=== PATIENT | male | born 1955 | race African-American/Black ===

== ENCOUNTER 2016-03-18 13:31 | Emergency (ER) | payer OTHER, SELFPAY ==
[2016-03-18 13:49] VITALS: TEMP 98.1; BMI 23.6
--- NOTE | 2016-03-18 13:59 | EDPRACDOC ---
- General Information Chief Complaint: Back Pain Stated Complaint: BACK PAIN - MED REFILL Time Seen by Provider: 03/18/16 13:52 Information Source: Patient, [employer] Mode Of Arrival: Ambulance Home Medications: Home Medications Cephalexin Monohydrate [Keflex] 500 mg PO Q6H #20 cap 04/12/15 Hydrocodone Bit/Acetaminophen [Hydrocodon-Acetaminophen 5-325] 1 tab PO Q6 PRN # 15 tab 04/12/15 Ciprofloxacin HCl [Cipro] 500 mg PO BID #14 tab 03/18/16 Cyclobenzaprine HCl [Flexeril] 10 mg PO TID PRN #15 tablet 03/18/16 Hydrocodone Bit/Acetaminophen [Lortab 5/325] 1 tab PO Q4-6H PRN #15 tab Prednisone [Deltasone, Orasone] 20 mg PO DAILY #20 tab 03/18/16 Allergies/Adverse Reactions: Allergies Allergy/AdvReac Type Severity Reaction Status Date / Time No Known Allergies Allergy Verified 04/12/15 11:27 - History of Present Illness Onset: 03/15/16 HPI: Pt states he stood up on Thursday and took 4 steps then passed out. C/o back pain since injury with pain in L thigh with weakness. Denies cp, sob, headache, vision changes, n/v, abd pain, loss of control bowel or bladder. Hx "slipped discs in lower back" Pain Location: Reports: Left, Lumbar Pain Radiates To: Reports: Thigh, Buttock Pain Caused By: Reports: Spontaneous Circumstances: Reports: Fall Relevant History: Reports: Chronic back pain Pain Severity: Reports: Moderate Pain Quality: Reports: Aching Worsened By: Reports: Movement, Walking Associated Signs and Symptoms: Reports: None ED Past Medical History - History Reviewed Yes Nurses notes reviewed and agree except as marked - Patient Medical History Cardiac History: Reports: Hypertension Psychological History: Denies: Depression Additional Past Medical History: CHRONIC PAIN - Social Medical History Smoking Status: Light tobacco smoker (less than 5/day) ETOH: Social Substance Abuse: None EDM Review of Systems - Review of Systems Constitutional: No Symptoms Reported. negative: Fever, Chills, Weakness, Fatigue, Loss of Appetite Eyes: No Symptoms Reported. negative: Redness, Blurred Vision, Double Vision, Discharge, Pain, Light Sensitive, Photophobia Ears: No Symptoms Reported. negative: Pain, Hearing Loss, Drainage, Ear Pulling Throat: No Symptoms Reported. negative: Pain, Swelling Nose: No Symptoms Reported. negative: Congestion, Bleeding, Discharge, Injection, Swelling, Deformity, Ecchymosis, Tender, Abrasion, Laceration Mouth: No Symptoms Reported. negative: Pain, Drooling Respiratory: No Symptoms Reported. negative: Cough, Brassy Cough, Barky Cough, Shortness of Breath, Wheezing, Hemoptysis Cardiovascular: Syncope. negative: No Symptoms Reported, Chest Pain, Cyanosis, Edema, Orthopnea, Palpitations, PND, Skin Mottling Gastrointestinal: No Symptoms Reported. negative: Pain, Constipation, Nausea, Vomiting, Diarrhea, Melena, Formula Intolerance Genitourinary: No Symptoms Reported Neurological: No Symptoms Reported. negative: Headache, Dizziness, Seizure, Numbness, Weakness, Speech Difficulty, Gait Difficulty Musculoskeletal: Back, Femur, Hip Integumentary: No Symptoms Reported. negative: Itching, Rash, Bruising, Wound Allergic/Immunologic: No Symptoms Reported. negative: Hives, Itching Hematologic: No Symptoms Reported. negative: Lymphadenopathy, Easy Bruising, Easy Bleeding Psychiatric: No Symptoms Reported. negative: Anxiety, Depression, Hallucinations, Insomnia, Suicidal - Physical Exam Constitutional: Alert Oriented to: Time, Person, Place Last recorded Vital Signs: Last Vital Signs Temp 98.1 F 03/18/16 13:44 Pulse 65 03/18/16 13:44 Resp 18 03/18/16 13:44 BP 137/85 03/18/16 13:44 Pulse Ox 98 03/18/16 13:44 Oxygen Pulse Oxygen Saturation 98 O2 Device Room Air Oxygen Flow Rate Fraction of Inspired Oxygen ( FIO2) - HEENT Head: Normal ( normocephalic) Eye Exam: Normal (PERRL, EOMI, Sclera white) Oropharynx: Normal (Pharynx:Moist without exudate,Gums-no swelling) Tympanic Membrane: Normal ENT EAC: Normal Nose: No Symptoms Reported (septum midline) Neck: Normal (FROM, trachea at midline) - Respiratory/Cardiovascular Respiratory: Normal - CTA (BBS clear to auscultation without adventitious sounds ) Cardiovascular: Normal (RRR without murmur, gallop or rub) - GI Auscultation: Normal (NABS) Palpation: Normal (Soft,No rebound or guarding, non distended) Tenderness: Non tender, Other (no LUQ or ruq tenderness) Martinez's Sign: Negative - Musculoskeletal Back: Lumbar TTP Extremities: Normal (Normal tone, Pulses 2+ No cyanosis or edema, FROM) - Integumentary Skin: Normal, Warm, Dry Lymphatics: Normal (no adenopathy) - Neurologic Memory Impaired: Normal Motor Function: Normal (Normal tone, Pulses 2+ No cyanosis or edema, FROM) Mood Description: Normal Perception: Normal ED Back Exam - Neurologic Motor Deficit: None (strength 5/5, sensation nl) Reflexes: Normal (CN II-X11 intact) - Musculoskeletal Cervical: Normal Thoracic: Normal Lumbar: Tender Midline: Tender Paraspinous: Tender Straight Leg Raise: Positive (L) Pelvis: Normal - Differential Diagnosis DJD, Fracture, HNP, Musculoskeletal pain, Urinary tract infection - Results 03/18/16 14:17 03/18/16 14:17 03/18/16 15:25 Laboratory Results - last 24 hr 03/18/16 03/18/16 03/18/16 14:17 14:17 15:01 WBC 6.4 RBC 5.05 Hgb 14.8 Hct 44.3 MCV 88 MCH 29.3 MCHC 33.4 RDW 14.1 Plt Count 220 MPV 8.1 Neut % (Auto) 56.0 Lymph % (Auto) 34.5 Darke % (Auto) 6.3 Eos % (Auto) 2.5 Baso % (Auto) 0.7 Absolute Neuts (auto) 3.58 Absolute Lymphs (auto) 2.18 Sodium 141 Potassium 4.1 Chloride 107 Carbon Dioxide 24 Anion Gap 14 BUN 12 Creatinine 1.30 H Estimated GFR (MDRD) > 60 Glucose 90 Calculated Osmolality 271 Calcium 9.6 Total Bilirubin 0.4 AST 25 ALT 35 Alkaline Phosphatase 58 Total Protein 7.1 Albumin 4.0 Urine Color Yellow Urine Clarity Sl cldy Urine pH 5.0 Ur Specific [place] 1.015 Urine Protein Neg Urine Glucose (UA) Neg Urine Ketones Neg Urine Occult Blood Neg Urine Nitrite Neg Urine Bilirubin Neg Urine Urobilinogen <2.0 Ur Leukocyte Esterase 2+ H Urine RBC 2-5 H Urine WBC 10-20 H Ur Epithelial Cells 2+ Urine Bacteria Few Urine Mucus Mod H - EKG EKG #1 EKG Time: 15:15 Rate: bpm: 51 [place]: Normal Rhythm: SB, PVCs Block: RBBB ST: Normal - Diagnostic Imaging Head Image interpreted by: Radiologist IMPRESSION: No acute intracranial abnormality. Mild cerebral atrophy. Mild periventricular white matter decreased attenuation probable due to chronic small vessel ischemic changes. L-Spine Image interpreted by: Radiologist IMPRESSION: No acute bony pathology. Decision Time to Discharge: 15:26 - Departure Disposition: Home Condition: Good Final Diagnosis: Lumbar radiculopathy, Acute urinary tract infection Instructions: Urinary Tract Infection in Men (ED), Lumbar Radiculopathy (ED) Education/Counseling Given To: Patient Education/Counseling Given Regarding: Diagnosis, Treatment, Follow Up Referrals: None,No Provider [Primary Care Provider] - One Week Timi Robin II, MD [Staff Physician] - One Week Prescriptions: Ciprofloxacin HCl [Cipro] 500 mg PO BID #14 tab Cyclobenzaprine HCl [Flexeril] 10 mg PO TID PRN #15 tablet PRN Reason: Pain Hydrocodone Bit/Acetaminophen [Lortab 5/325] 1 tab PO Q4-6H PRN #15 tab PRN Reason: Pain Prednisone [Deltasone, Orasone] 20 mg PO DAILY #20 tab Additional Instructions: Increase fluids. Return for worse or different symptoms.
[2016-03-18 14:30] LABS: AUTOMATED BASOPHIL 0.7 % (0-2); AUTOMATED EOSINOPHIL 2.5 % (0-5); AUTOMATED LYMPH 34.5 % (17-44); AUTOMATED MONOCYTE 6.3 % (3-10); MPV 8.1 fL (7.4-10.4)
--- NOTE | 2016-03-18 14:32 | DIRPT ---
CLINICAL DATA: Syncope EXAM: CT HEAD WITHOUT CONTRAST TECHNIQUE: Contiguous axial images were obtained from the base of the skull through the vertex without intravenous contrast. COMPARISON: None. FINDINGS: No skull fracture is noted. Paranasal sinuses and mastoid air cells are unremarkable. No intracranial hemorrhage, mass effect or midline shift. Mild cerebral atrophy. Mild periventricular white matter decreased attenuation probable due to chronic small vessel ischemic changes. No acute cortical infarction. No mass lesion is noted on this unenhanced scan. IMPRESSION: No acute intracranial abnormality. Mild cerebral atrophy. Mild periventricular white matter decreased attenuation probable due to chronic small vessel ischemic changes. Electronically Signed By: Tomás Satnoyo M.D. On: 03/18/2016 14:29
[2016-03-18 14:37] LABS: BLOOD UREA NITROGEN 12 MG/DL (9-20); CALCIUM 9.6 MG/DL (8.4-10.2); CALCULATED OSMOLALITY 271 MOs/Kg (270-290); CHLORIDE 107 mEq/L (98-107); GLUCOSE 90 MG/DL (70-99); SODIUM LEVEL 141 mEq/L (137-146); TOTAL PROTEIN 7.1 G/DL (6.3-8.2)
--- NOTE | 2016-03-18 14:46 | DIRPT ---
CLINICAL DATA: Pain EXAM: LUMBAR SPINE - COMPLETE 4+ VIEW COMPARISON: 06/11/2015 FINDINGS: Anatomic alignment. No vertebral compression. Anterior osteophytes throughout the lumbar spine. No definite fracture. IMPRESSION: No acute bony pathology. Electronically Signed By: Gaurav Fontenot M.D. On: 03/18/2016 14:44
[2016-03-18 15:18] LABS: LEUKOCYTES/URINE 2+ (NEGATIVE); NITRITE/URINE NEG (NEGATIVE); URINE OCCULT BLOOD NEG (NEG/TRACE)
[2016-03-18 15:51] VITALS: BP 144/96; PULSE 54
== END 2016-03-18 15:43 | disposition home or self-care (01) ==
LOC: EDMC 13:31
DX: N39.0 Urinary tract infection, site not specified (principal); M54.16 Radiculopathy, lumbar region; R55 Syncope and collapse
CPT/HCPCS: 36415; 70450; 72110; 80053; 81001; 85025; 87077; 87086; 93005; 99283